=== PATIENT | female | born 1945 | race Caucasian/White ===

== ENCOUNTER 2020-09-03 07:25 | Outpatient (CLI) | payer OTHER | END 2020-09-03 07:40 | disposition home or self-care (01) | LOC: RAD 07:25 | DX: M54.5 Low back pain (principal); Z18.9 Retained foreign body fragments, unspecified material; M46.1 Sacroiliitis, not elsewhere classified; M25.551 Pain in right hip ==

== ENCOUNTER 2020-09-13 10:36 | Outpatient (CLI) | payer OTHER | END 2020-09-13 10:45 | disposition home or self-care (01) | LOC: MRI 10:36 | PROVIDERS: ATTEND Podiatrist | DX: M76.61 Achilles tendinitis, right leg (principal); M77.51 Other enthesopathy of right foot and ankle | CPT/HCPCS: 73723; A9575; 73719 ==

== ENCOUNTER 2020-09-13 11:50 | Outpatient (CLI) | payer OTHER | END 2020-09-13 11:55 | disposition home or self-care (01) | LOC: LAB 11:50 | PROVIDERS: ATTEND Radiology Diagnostic Radiology | DX: N20.0 Calculus of kidney (principal) ==